=== PATIENT | female | born 1950 | race Caucasian/White ===

== ENCOUNTER 2024-02-27 15:22 | Emergency (ER) | payer MEDICARE, BC, SELFPAY ==
[2024-02-27 15:28] VITALS: BP 134/79
[2024-02-27 16:03] LABS: % Basophils 0.4 % (0-2); % Immature Granulocytes 0.3 % (0-0.5); % Lymphocytes 15.4 % (20.5-51.1); % Monocytes 10.1 % (1.7-9.3); % Neutrophils 72.8 % (42.2-75.2); Absolute Eosinophils 0.1 10^3/uL (0-0.7); Absolute Lymphocytes 1.4 10^3/uL (1.2-3.4); Absolute Monocytes 0.9 10^3/uL (0.1-0.6); Absolute Neutrophils 6.7 10^3/uL (1.4-6.5); Hematocrit 41.4 % (37.0-47.0); Hemoglobin 13.5 g/dL (12.0-16.0); Mean Corp Hgb Conc. 32.6 g/dL (33.0-37.0); Mean Corpuscular Hgb 29.5 pg (27.0-31.0); Mean Corpuscular Volume 90.6 fL (81.0-99.0); Mean Platelet Volume 9.9 fL (7.4-10.4); Nucleated Red Blood Cells % 0 %; Platelet Count 342 10^3/uL (130-400); Red Blood Cell Count 4.57 10^6/uL (4.20-5.40); White Blood Cell Count 9.2 10^3/uL (4.8-10.8)
[2024-02-27 16:19] LABS: ALT (SGPT) 41 U/L (0-35); AST (SGOT) 44 U/L (14-36); Alkaline Phosphatase 103 U/L (38-126); Blood Urea Nitrogen 19 mg/dl (7-17); Calcium 9.2 mg/dl (8.4-10.2); Carbon Dioxide 24 mmol/L (22-30); Chloride 103 mmol/L (98-107); Glucose 146 mg/dl (70-99); Potassium 3.7 mmol/L (3.5-5.1); Sodium 139 mmol/L (135-145); Total Bilirubin 1.2 mg/dl (0.2-1.3); Total Protein 7.1 g/dl (6.3-8.2); eGFR > 60.00
[2024-02-27 17:10] VITALS: BP 121/73
--- NOTE | 2024-02-27 17:41 | ED.CVA ---
History of Present Illness
General
Chief Complaint: CVA/TIA Symptoms
Source: spouse and family
Time Seen by Provider: 02/27/24 17:21
Onset of Stroke Symptoms
Onset of symptoms known: No
Time pt last seen normal is known: No
Date last time pt seen normal: 02/26/24
History of Present Illness
History of Present Illness:
74-year-old female brought to the emergency by family for evaluation of generalized weakness. Patient seems less alert than normal. Symptoms began yesterday. Patient has a history of dementia and is followed at a memory center at an outside
institution. He called the physician at this memory center who said the patient needs a CAT scan. denies any cough or cold symptoms. He does not believe she has had a fever. She was started on a Alzheimer's medication about a year ago.
No other medication changes recently. They state the patient does not seem to have any focal area of weakness but rather just weak in general. They had difficulty getting her to ascend a flight of steps at home.
Phy Exam
Physical Exam
Physical Exam:
General: Sleeping but easily arousable. No distress.
Vitals: unremarkable
Head: Atraumatic
Eyes: Pupils equal, EOMI
Throat: Airway intact, no exudates
Neck: Trachea midline
Lungs: Clear and equal b/l
Heart: Regular rate, no murmurs
Abd: Soft, Nontender, No pulsatile mass
Neuro: Cranial nerves intact, muscle strength equal bilaterally, sensation intact
Skin: Warm, dry, no rash
Extremities: pulses equal b/l, no edema
Course
Orders/Labs/Results
Orders:
Orders
02/27/24 15:38
CT Head W/o Iv Contrast Urgent
Comment:
Reason For Exam: weakness
02/27/24 15:40
Complete Blood Count/With Diff Urgent
Comprehensive Metabolic Panel Urgent
02/27/24 17:40
Straight cath- Treatment ONCE
02/27/24 17:43
COVID-19 Antigen Urgent
Source: Nasal Swab
Influenza A+B Rapid Molecular Urgent
AYDE Source: Nasal Swab
Specimen Description:
02/27/24 17:44
Urinalysis Reflex To Culture Urgent
Date Specimen was Collected: 02/27/24
Time Specimen was Collected: 17:41
Urine Microscopic Reflex Cult Urgent
Urine Culture Urgent
AYDE Source: U
Specimen Description:
Date Specimen was Collected: 02/27/24
Time Specimen was Collected: 17:41
02/27/24 19:08
Cephalexin Monohydrate [Keflex] 500 mg PO NOW STA
Abnormal Lab Results
02/27/24 02/27/24
15:40 17:44
MCHC 32.6 L g/dL
(33.0-37.0)
Absolute Neuts (auto) 6.7 H 10^3/uL
(1.4-6.5)
Absolute Monos (auto) 0.9 H 10^3/uL
(0.1-0.6)
Lymphocytes % 15.4 L %
(20.5-51.1)
Monocytes % 10.1 H %
(1.7-9.3)
BUN 19 H mg/dl
(7-17)
Glucose 146 H mg/dl
(70-99)
AST 44 H U/L
(14-36)
ALT 41 H U/L
(0-35)
Ur Occult Blood Reflex 2+ A
(Negative)
Urine Nitrite (Reflex) Positive A
(Negative)
Leukocyte Esterase Rfl 2+ A
(Negative)
Urine RBC 3-6 A /HPF
(0-2)
Urine WBC (Reflex) 21-25 A /HPF
(0-5)
Urine Bacteria (Reflex) Many A
(Negative)
Urine Albumin (Reflex) 1+ A
(Neg - Trace)
02/27/24 15:40
02/27/24 15:40
Vital Signs
Initial and Last Documented VS:
Initial Vital Signs
Temp Pulse Resp BP Pulse Ox
98.6 F 93 16 134/79 93
02/27/24 15:28 02/27/24 15:28 02/27/24 15:28 02/27/24 15:28 02/27/24 15:28
Last Documented Vital Signs
Temp Pulse Resp BP Pulse Ox
100.4 F H 61 21 121/70 93
02/27/24 17:45 02/27/24 19:15 02/27/24 19:15 02/27/24 19:00 02/27/24 19:15
MDM/Problems Addressed
Differential Diagnosis Includes:
Dehydration, CVA, electrolyte abnormality, infectious process like UTI or flu
MDM/Problems Addressed:
Patient has a normal white count. A rectal temperature was obtained which shows she is mildly febrile at 100.4. Labs show a very mild elevation in AST and ALT. Her urinalysis is consistent with a urinary tract infection. Head CT shows no acute
abnormalities.
*Radiology
Radiology exam reviewed: radiology read reviewed
*Pulse Oximetry
Patient hypoxic: no
*Critical Care Note
Total Time (30-74mins, 75-104mins- exclusive of procedures): Not Applicable
ED Attending Note
-
Portions of this chart may have been created with voice recognition software.� Occasional wrong word or��sound alike� substitutions may have occurred due to the inherent limitations of voice recognition software.
Discharge Plan
Departure
Patient Disposition: Home (Routine Discharge)
Date of Disposition: 02/27/24
Time of Disposition: 19:08
Patient with high blood pressure during this ER visit?: No
Condition: Good
Discharge Problem:
Acute UTI, Generalized weakness
Instructions: Urinary tract infections in adults
Prescriptions:
New
cephalexin 500 mg capsule
500 mg PO BID 7 Days Qty: 14 0RF
Referrals:
UNKNOWN - PT DOES,NOT KNOW [Family Provider] -
Activity Restrictions/Additional Instructions:
Return to the ER if Catherine seems to be getting worse or is not improving after 48 hours of antibiotics.
Interventions
Interventions:
*Risk Screen - Suicide Last Done: 02/27/24 15:28
*General Assessment Last Done: 02/27/24 18:03
*Neglect/Abuse Screening Last Done: 02/27/24 15:28
ED- Fall Risk Assessment Last Done: 02/27/24 18:03
*ED COVID-19 Vaccine History Last Done: 02/27/24 18:03
*Nursing Disposition Last Done: 02/27/24 19:41
ED- Pulmonary Assessment Last Done: 02/27/24 18:03
ED- Neurological Assessment Last Done: 02/27/24 18:03
ED- Cardiac Assessment Last Done: 02/27/24 18:03
Discharge Date and Time
Discharge Date/Time: 02/27/24 19:45
Print Language: SERBIAN
[2024-02-27 17:59] VITALS: BMI 41.8
[2024-02-27 18:00] VITALS: BP 118/68
[2024-02-27 18:02] LABS: Urine Albumin 1+ (Neg - Trace); Urine Bilirubin Negative (Negative); Urine Character Slightly Cloudy (Clear); Urine Color Yellow; Urine Glucose Negative (Negative); Urine Ketone Negative (Negative); Urine Leukocyte 2+ (Negative); Urine Nitrite Positive (Negative); Urine Occult Blood 2+ (Negative); Urine Urobilinogen Negative (Neg - 1+)
[2024-02-27 18:12] LABS: Urine Bacteria Many (Negative); Urine Squamous Cell 0-2 /LPF (Few); Urine White Cell 21-25 /HPF (0-5)
[2024-02-27 18:26] LABS: COVID-19 Antigen Negative (Negative)
[2024-02-27 19:00] VITALS: BP 121/70
[2024-02-27] MEDS: KEFLEX 500 MG PO (19:21)
== END 2024-02-27 19:45 | disposition home or self-care (01) ==
LOC: EMR 15:22
PROVIDERS: Student in an Organized Health Care Education/Training Program; EMERGENCY PHYSICIAN Emergency Medicine
DX: N39.0 Urinary tract infection, site not specified (principal); R53.1 Weakness; F02.80 Dementia in other diseases classified elsewhere, unspecified severity, without behavioral disturbance, psychotic disturbance, mood disturbance, and anxiety; Z11.52 Encounter for screening for COVID-19
CPT/HCPCS: 99284; 70450; 80053; 81003; 81015; 85025; 87077; 87086; 87186; 87502; 87811

== ENCOUNTER → 2024-04-07 15:26 | Outpatient (REF) | payer MEDICARE, BC, SELFPAY | LOC: HWRAD 15:26 | PROVIDERS: ATTENDING PHYSICIAN Student in an Organized Health Care Education/Training Program | DX: M25.532 Pain in left wrist (principal) | CPT/HCPCS: 73110 ==

== ENCOUNTER → 2024-07-14 14:26 | Outpatient (REF) | payer MEDICARE, BC, SELFPAY | LOC: HWWDC 14:26 | PROVIDERS: ATTENDING PHYSICIAN Student in an Organized Health Care Education/Training Program | DX: Z12.31 Encounter for screening mammogram for malignant neoplasm of breast (principal) | CPT/HCPCS: 77063; 77067 ==